=== PATIENT | male | born 1955 | race Caucasian/White ===

== ENCOUNTER 2016-10-21 09:40 | Inpatient (IN) | payer OTHER ==
--- NOTE | 2016-10-08 10:57 | GHP ---
[f rep st] PREOP HISTORY AND PHYSICAL DATE OF ADMISSION: He will be an a.m. admission for surgery at [facility] on October 21, 2016. PROBLEM: Right hip arthritis. HISTORY OF PRESENT ILLNESS: The patient is a 60-year-old man admitted for a right hip [place] hip resurfacing arthroplasty. I did his left BHR in 2010, and he has had an excellent result. In the past few years, he has had progressive pain in his right hip. He has difficulty putting on his shoes and socks on the right. He complains of anterior thigh and groin pain which is worse with activity. He also has pain at night, He is using Aleve on a daily basis. Because of progressive pain and limitation of activities and function, he will undergo a right hip [place] hip resurfacing arthroplasty. PAST MEDICAL HISTORY: I did his left BHR in 2010. In 2011, he was diagnosed and treated for bladder cancer. He remains negative so far. He has also had a mass removed from his left kidney. The mass was benign. No history of heart disease, stents, DVT, hepatitis or sleep apnea. No history of previous serious MRSA staph infections. CURRENT MEDICATIONS: Acyclovir daily, Anastrozole twice a week for ongoing treatment of his bladder cancer, generic Viagra p.r.n. ALLERGIES: Drug Allergies: None. Metal Allergies: None. Latex Allergy: None. SOCIAL HISTORY: The patient is single but has a live-in girlfriend. He does not smoke cigarettes or drink alcohol. 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 FAMILY HISTORY: Positive for cancer. PHYSICAL EXAMINATION: GENERAL: He is a thin, fit, healthy-appearing man. VITAL SIGNS: Height 5 feet 11-1/2 inches, weight 180 pounds, BMI 24.8. EYES: The conjunctivae and sclerae are clear. Pupils are round and reactive. MOUTH: Good oral hygiene. No loose teeth. CHEST: Clear. HEART: Regular rhythm. No murmurs. EXTREMITIES: Pertinent findings are limited to his right hip. He has full hip extension and 110 degrees of flexion. He has pain at the extreme of motion. External rotation 10 degrees. Internal rotation 10 degrees with pain. Abduction 45 degrees. IMAGING: His films show degenerative arthritis of his right hip. His left BHR looks fine. IMPRESSION ON ADMISSION: 1. Right hip degenerative arthritis. He is prepared for right total hip arthroplasty. 2. Five and a half years status post left Cayetano hip resurfacing with a good result. 3. Treatment for bladder cancer in 2012. As far as he knows, he remains disease free. PLAN: He will undergo a right hip [place] hip resurfacing arthroplasty. The surgery has been described to him, including the risks, complications, expectations, and recovery time. I have discussed with him the risk of dislocation, femoral neck fracture, infection, and sciatic nerve injury. We have also reviewed the potential risk of metal ions in the blood and also in the soft tissues around the hip joint. He understands there is a possibility he could need revision surgery in the future. I have discussed with him and offered him a conventional total hip replacement. All his questions have been answered, and he consents to surgery. Copy requested to: Dr. Shirley Ledesma, [place] /[id number]/MODL MTDD
[~2016-10-21 09:40] MED LIST: ACETAMINOPHEN 325 MG TAB PO ONE; CEFAZOLIN 2 GM/DEXTR 100 ML IV ONE; CHLORHEXIDINE GLUC HIBICLENS 118 ML BTL TP ONE; DEXAMETHASONE 4 MG/ML VIAL IVP ONE; FAMOTIDINE 20 MG TAB PO ONE; POVIDONE-IODINE 20 ML in SODIUM CL IRRIG SOLUTION 500 ML IRR ONE; ROPI/epiNEPH/KETOROLAC JOINT COCKTAIL IU ONE; TRANEXAMIC ACID 1,660 MG in NS 100 ML IV ONE
[2016-10-21] MEDS ORDERED: DEXAMETHASONE 4 MG/ML VIAL ONE ×2 (10:06→12:08)
[2016-10-21] MEDS ORDERED: ACETAMINOPHEN 325 MG TAB ONE (10:06)
[2016-10-21] MEDS ORDERED: FAMOTIDINE 20 MG TAB ONE (10:06)
[2016-10-21] MEDS ORDERED: CEFAZOLIN 2 GM/DEXTROSE/100 ML BAG IV ONE (10:07)
[2016-10-21] MEDS ORDERED: LIDOCAINE 1% 5 ML SDV ID PRN (10:48)
[2016-10-21] MEDS ORDERED: LR 1,000 ML IV ONE (10:48)
[2016-10-21] MEDS ORDERED: LIDOCAINE 1% 5 ML SDV ONE (10:51)
[2016-10-21] MEDS ORDERED: SKIN ADHESIVE (DERMABOND) 1 EACH TP ONE (11:29)
[2016-10-21] MEDS ORDERED: ceFAZolin 1 GM/5 ML SYR ONE (11:30)
[2016-10-21] MEDS ORDERED: MIDAZOLAM 2 MG/2 ML VIAL ONE (11:41)
[2016-10-21] MEDS ORDERED: fentaNYL 100 MCG/2 ML INJ ONE (11:43)
[2016-10-21] MEDS ORDERED: PROPOFOL/EMULSION 500 MG/50 ML BOTTLE IV ONE (11:43)
[2016-10-21] MEDS ORDERED: LIDOCAINE 2% 5 ML SDV ONE (11:44)
[2016-10-21] MEDS ORDERED: PHENYLEPHRINE HCL 100 MCG/ML SYR ONE ×2 (12:22→13:31)
[2016-10-21] MEDS ORDERED: ONDANSETRON 4 MG/2 ML VIAL ONE (13:39)
--- NOTE | 2016-10-21 13:45 | POSTOPPROG ---
Post Op Note Date of Operation: 10/21/16 Surgeon: Sohail Herring Line Installer Trolley: Rebekah Anesthesiologist: Becca Anesthesia: IV Sedation, Spinal Post-op Diagnosis: right hip arthritis Procedure: right BHR Inf/Abcess present in the surg proc area at time of surgery?: No EBL: 100-500
[2016-10-21] MEDS ORDERED: diphenhydrAMINE 25 MG CAP PO PRN (14:02)
[2016-10-21] MEDS ORDERED: POLYETHYLENE GLYCOL 3350 17 GM PKT PO PRN (14:02)
[2016-10-21] MEDS ORDERED: traMADol 50 MG TAB PO PRN (14:02)
[2016-10-21] MEDS ORDERED: KETOROLAC 30 MG/1 ML SDV IVP PRN (14:02)
[2016-10-21] MEDS ORDERED: NS 500 ML IV PRN (14:02)
[2016-10-21] MEDS ORDERED: MAGNESIUM HYDROXIDE 30 ML UDCUP PO PRN (14:02)
[2016-10-21] MEDS ORDERED: ONDANSETRON DISINTEGRATING 4 MG TAB PO PRN (14:02)
[2016-10-21] MEDS ORDERED: DIPHENOXYLATE/ATROPINE LOMOTIL 1 TAB PO PRN (14:02)
[2016-10-21] MEDS ORDERED: PHARMACY PAIN CONSULT 1 EA MISC PRN (14:02)
[2016-10-21] MEDS ORDERED: LACTULOSE 20 GM/30 ML UDCUP PO PRN (14:02)
[2016-10-21] MEDS ORDERED: TEMAZEPAM 15 MG CAP PO PRN (14:02)
[2016-10-21] MEDS ORDERED: PROMETHAZINE HCL 25 MG SUPPR PR PRN (14:02)
[2016-10-21] MEDS ORDERED: BISACODYL 10 MG SUPP PR PRN (14:02)
[2016-10-21] MEDS ORDERED: METOCLOPRAMIDE 10 MG/2 ML VIAL IVP PRN (14:02)
[2016-10-21] MEDS ORDERED: PROMETHAZINE HCL 25 MG/ML VIAL IVP PRN (14:02)
[2016-10-21] MEDS ORDERED: ONDANSETRON 4 MG/2 ML VIAL IVP PRN (14:02)
[2016-10-21] MEDS ORDERED: CYCLOBENZAPRINE 10 MG TAB PO PRN (14:02)
--- NOTE | 2016-10-21 14:48 | DX ---
Portable pelvis AP Pelvis History: Hip resurfacing procedure. Comparison to prior study of April 10, 2011. Findings: A right hip resurfacing of prosthesis is present and appears to be in good anatomic alignme nt. There is some gas in the soft tissues overlying the right hip. Left hip resurfacing prosthesis is stable in position. Impression: Good alignment of the new right hip resurfacing prosthesis.
--- NOTE | 2016-10-21 15:40 | GOP ---
[f rep st] OPERATIVE REPORT DATE OF OPERATION: 10/21/2016 SURGEON: Sohail Herring MD TILE ERECTOR: Isrrael Lam and Brandt Johnson. ANESTHESIA: Combination of Marcaine spinal and IV sedation by Dr. Derrell Hudson. PREOPERATIVE DIAGNOSIS: Right hip degenerative arthritis. POSTOPERATIVE DIAGNOSIS: Right hip degenerative arthritis. PROCEDURE PERFORMED: Right hip Cayetano hip resurfacing arthroplasty. FINDINGS: DESCRIPTION OF PROCEDURE: The patient was given 2 g of IV Ancef preoperatively within 60 minutes of surgery. He also received IV tranexamic acid at a dose of 20 mg/kg. He was placed on the operating room table and given spinal anesthesia with Marcaine by Dr. Hudson. He was then placed supine and giv en IV sedation. A Marcos catheter was not used. He wore a compressive stocking and SCD on the nonope rative leg. He was rolled to the left lateral decubitus position. An axillary roll was used and all pressure points were carefully padded. The position was secured with the pegboard table attachment. I was careful to lock his pelvis in a vertical position. His perineum was isolated with plastic ad hesive drapes. The right hip and right lower extremity were prepped with ChloraPrep. They were drap ed free using sterile sheets, stockinette, and Ioban plastic drape. The World [employer] Organization time-out was performed to identify the patient identity and the correct surgical side. The [place] time-out was also performed. I made a 7-inch straight oblique posterolateral hip skin incision. The subcutaneous tissues were sha rply divided and hemostasis was obtained using electrocautery. The fascia elif was identified and sp lit along the axis of its fibers. I then curved posteriorly and proximally and split the fascia of g luteus lisa and bluntly split the muscle fibers in line with their orientation. His sciatic nerve was identified and protected throughout the procedure. The Charnley self-retaining retractor was in serted. The external rotators and the posterior hip capsule were divided as separate layers at the b ase of the femoral neck, tagged and reflected posteriorly. The gluteus lisa tendon was divided an d tagged in order to improve exposure and release tension on the sciatic nerve. His hip was dislocat ed posteriorly. I used a sizing gauge to check the diameter of the neck and concluded that 50 mm was the proper head size. He had a large femoral head but I felt 50 mm was the correct size based on h is neck diameter. I performed a complete circumferential capsulotomy. I was able to retract the fem oral head anteriorly and superiorly and hold it out of place with appropriate retractors. The remnan t of his damaged labrum was completely excised. His acetabulum was reamed sequentially up to 55 mm. I selected the Cayetano monoblock porous-coated acetabular component with an outside diameter of 5 6 mm. This was firmly impacted and was a very tight fit. I was careful to determine proper inclinat ion and anteversion. I used the transverse acetabular ligament and other acetabular bony landmarks t o help me properly orient the cup. Some small posterior inferior osteophytes were removed with a lianne geur. I was careful to leave a good lip of bone and capsule extending beyond the anteroinferior lip of the metal cup. I then returned to preparation of the femoral head. Using appropriate jigs and guides, I inserted a guide pin into the femoral head and neck. I was careful to position in such a way there would be no notching of the neck. The large sterile metal goniometer was used to check the neck shaft angle. I reamed over the guide pin and inserted the reaming guide. I then used the cylindrical reamer down to the head and neck junction. This was followed by the flat reamer and the chamfer reamer. He had so me moderately large soft anterior neck osteophytes which I removed with a rongeur. The head was size d for 50 mm. There was no impingement or damage to the neck. I drilled a small hole in the lesser t rochanter and inserted a suction cannula to create negative pressure to the medullary canal. Small h oles were drilled on the flattened chamfer surfaces of the prepared head for cement anchors. The hea d was thoroughly cleaned with the pulsating lavage and carefully dried. I used a CarboJet device to blow dry the cancellous surfaces. A single batch of Simplex cement with tobramycin was mixed. At ab out 50 seconds, I poured the liquid cement into the head component, inserted it onto the femoral head and impacted it into place. Excess cement was removed before it hardened. The acetabulum was irrig ated, cleaned and inspected and the hip was reduced. Stability and range of motion were checked. I placed my finger along the anterior aspect of the acetabular component and flexed the hip to 110 degr ees. There was no anterior impingement. The wound was thoroughly irrigated with a dilute Betadine s olution. 40 mL of the joint anesthetic cocktail were injected into the capsule, the deep musculature and the subcutaneous tissues along the skin edges. His sciatic nerve was reinspected and looked unharmed. The external rotators and the posterior hip c apsule were repaired in separate layers with #2 FiberWire sutures through drill holes in the greater trochanter. This provided a strong posterior capsular and external rotator repair. The gluteus maxi mus tendon was repaired with 2 interrupted [id number] #2 FiberWire sutures. The fascia elif was repaired 1st with 2 interrupted [id number] #2 FiberWire sutures followed by a running #2 barbed Ethicon Stratafix PDO suture. The subcutaneous tissues were closed with a running 0 barbed Ethicon Stratafix FX Monoderm suture. The skin was closed with a running 3-0 barbed Ethicon Stratafix Monode rm subcuticular suture. The skin edges were reapproximated and sealed with Dermabond glue. The woun d was covered with a strip of Telfa, and everything was held in place with a piece of clear plastic T egaderm. The estimated blood loss was about 500 mL. I used a [employer] Cayetano hip resurfacing system. The acetabular component was 56 mm in d iameter and press-fit. The femoral head was 50 mm and cemented. He was awakened from anesthesia and rolled to the supine position on his [facility]. A long-leg compressive stocking and SCD were applied to the operative leg. He wore a stocking and SCD on the opposite leg during the procedure. An abduction pillow was placed between his knees. He was taken to PACU in satisfactory condition. T here were no recognized intraoperative complications. The sponge and needle count were correct on 2 occasions. Brandt Johnson and Isrrael Lam acted as surgical assistants. Their assistance was a medical necess ity. Copy requested to: Dr. Shirley Ledesma, [place] /[id number]/MODL
[2016-10-21] MEDS: TRANEXAMIC ACID 650 MG TAB PO SCH ×2 (17:40→22:26)
[2016-10-21] MEDS: ACETAMINOPHEN 325 MG TAB PO SCH ×2 (17:40→23:06)
[2016-10-21] MEDS: LR 1,000 ML IV SCH (19:48)
[2016-10-21] MEDS: ceFAZolin 2 GM/DEXTROSE 100 ML IV SCH (19:48)
[2016-10-21] MEDS: SENNOSIDES/DOCUSATE SODIUM TAB PO SCH (22:26)
[2016-10-21] MEDS: ASPIRIN 325 MG TAB PO SCH (22:26)
[2016-10-21] MEDS: FAMOTIDINE 20 MG TAB PO SCH (22:40)
[2016-10-21] MEDS: oxyCODONE IR 5 MG TAB PO PRN (23:45)
[2016-10-22] MEDS: oxyCODONE IR 5 MG TAB PO PRN ×3 (00:32→12:23)
[2016-10-22] MEDS: ACETAMINOPHEN 325 MG TAB PO SCH ×2 (04:34→12:23)
[2016-10-22] MEDS: ceFAZolin 2 GM/DEXTROSE 100 ML IV SCH (04:34)
[2016-10-22] MEDS: LR 1,000 ML IV SCH (05:28)
[2016-10-22 05:42] LABS: HEMATOCRIT 36.5 % (40.0-51.0); HEMOGLOBIN 13.1 g/dL (13.7-17.5)
--- NOTE | 2016-10-22 07:06 | SOAPPROG ---
SOAP Progress Note Assessment/Plan: Assessment: Awake and alert. Quite a bit of pain overnight. Sciatic nerve intact. H/H is good. Mild bleeding on dsg. Films look good. Plan: Up with PT. Change dsg. DC later today. 10/22/16 07:04 Objective: Vital Signs Temp Pulse Resp BP Pulse Ox 36.7 C 82 16 91/57 L 96 10/22/16 05:06 10/22/16 05:06 10/22/16 05:06 10/22/16 05:06 10/22/16 05:06 Laboratory Results 10/22/16 04:42 10/21/16 10/22/16 10/23/16 05:59 05:59 05:59 Intake Total 2920 Output Total 1000 Balance 1920 ICD10 Worksheet Patient Problems: Problems Problem Status Diagnosed Osteoarthritis of right hip Acute
[2016-10-22 07:48] VITALS: RESP 14
[2016-10-22] MEDS: ASPIRIN 325 MG TAB PO SCH (08:19)
[2016-10-22] MEDS: SENNOSIDES/DOCUSATE SODIUM TAB PO SCH (08:19)
[2016-10-22] MEDS: TRANEXAMIC ACID 650 MG TAB PO SCH (08:20)
[2016-10-22] MEDS: FAMOTIDINE 20 MG TAB PO SCH (08:20)
[2016-10-22] MEDS ORDERED: valACYclovir 500 MG TAB PO SCH (09:00)
[2016-10-22] MEDS ORDERED: FERROUS SULFATE 140 MG TAB.ER PO SCH (09:00)
--- NOTE | 2016-10-22 09:33 | GDS ---
[f rep st] DISCHARGE SUMMARY ADMISSION DIAGNOSIS: Right hip advanced degenerative arthritis. DISCHARGE DIAGNOSIS: Right hip advanced degenerative arthritis. OPERATION PERFORMED: October 21, 2016 right hip [place] hip resurfacing arthroplasty. POSTOPERATIVE COMPLICATIONS: None. CONDITION ON DISCHARGE: Improved. DESCRIPTION OF HOSPITAL COURSE: The patient was admitted to the hospital on the morning of surgery. His admission CBC was normal. The same day, under a combination of Marcaine spinal and IV sedation, he underwent a right hip [place] hip resurfacing arthroplasty. Postoperatively, he was treated w ith multimodal DVT prophylaxis including aspirin. On the 1st postoperative day, his hemoglobin and h ematocrit were 13.1 and 36.5. He was seen by Physical Therapy and made good progress with ambulation and stairs. By the time of discharge, he was afebrile and was independently walking. DISPOSITION: Patient is discharged to his home. He will go to outpatient physical therapy. Continu e KAROLINE stockings for 1 week. Use an abduction pillow in bed for 3 weeks. He has prescriptions for ox ycodone and tramadol for pain control. I will see him back in the office on November 13, 2016. If th ere any problems, he is to call me at the office. Copy requested to: Dr. Shirley Ledesma, [place] /[id number]/MODL
[2016-10-22 11:17] VITALS: BP 101/57; PULSE 77; TEMP 98
[2016-10-22 12:51] VITALS: O2SAT 95
[2016-10-23] MEDS ORDERED: ANASTROZOLE 1 MG TAB PO SCH (14:00)
[2016-10-24] MEDS ORDERED: TESTOSTERONE 1% 5 GM GEL PKT TD SCH (08:00)
== END 2016-10-22 16:04 | disposition home or self-care (01) | DRG 470 ==
LOC: F3N 09:40
PROVIDERS: ADMIT Orthopaedic Surgery; ATTEND Orthopaedic Surgery
PROC: 0SU90BZ Supplement Right Hip Joint with Resurfacing Device, Open Approach (ICD-10-PCS; principal; 2016-10-21 11:46)
DX: M16.11 Unilateral primary osteoarthritis, right hip (principal); Z85.51 Personal history of malignant neoplasm of bladder; Z96.642 Presence of left artificial hip joint
CPT/HCPCS: 97110-GP; 97116-GP; 97162-GP; 97165-GO; 97530-GP; C1713; J0171; J0690; J1100; J1885; J2250; J2370; J2405; J2704; J2795; J3010